=== PATIENT | male | born 1950 | race Caucasian/White ===

== ENCOUNTER 2019-09-15 13:08 | Emergency (ER) | payer MEDICARE, MEDICAID, SELFPAY ==
[2019-09-15] VITALS (12 sets, daily range): BP systolic 175–193; BP diastolic 104–109; PULSE 75–90; RESP 13–19; TEMP 36.5; O2SAT 95–100
--- NOTE | 2019-09-15 13:15 | DI.RAD_ITS ---
EXAM: XR PORTABLE CHEST AP CLINICAL HISTORY: Weakness. TECHNIQUE: 2D digital imaging was performed. COMPARISON: ABD FLAT UPRIGHT PA CHEST from 09/07/2015 FINDINGS: LUNGS: Clear. No pleural abnormality seen. HEART: Normal. MEDIASTINUM: Normal. OTHER FINDINGS: There is chronic deformity of the distal right clavicle. LUNGS: Clear. No pleural abnormality seen. Leads overlie the chest. HEART: Normal size. Pacemaker. IMPRESSION: No acute pulmonary findings. DATA REPOSITORY: RADIATION DOSE DELIVERED:
--- NOTE | 2019-09-15 13:26 | W.ED.GENAD ---
Discharge Plan Disposition Patient Disposition: HOME Condition: Stable Discharge Details Chief Complaint: GenMedical Clinical Impression: Weakness generalized Primary Care Provider: Santos Alexis ED Provider: Nereyda Byrne Home Meds and New Rx's Prescriptions: Continued atorvastatin [Lipitor] 40 MG tablet 40 mg PO DAILY RF: 0 aspirin 325 MG tablet 325 mg PO DAILY RF: 0 metoprolol succinate 100 MG tablet extended release 24 hr 200 mg PO DAILY RF: 0 chlordiazepoxide HCl 25 MG capsule 25 mg PO Q6H PRN PRNQty: 15 RF: 0 lisinopril 40 MG tablet 20 mg PO DAILY RF: 0 levetiracetam 750 mg Tablet 750 mg PO BID RF: 0 multivitamin Tablet 1 tab PO DAILY RF: 0 Discharge Instructions Instructions: Weakness (ED) Additional Instructions: Follow up with primary care provider in 3-5 days. Return to ED sooner if any worsening or concerns. Increase oral fluids. Return for any worsening or any concerns. Referrals: Santos Alexis [Primary Care Provider] - Discharge Data Discharge Date/Time-TO BE ENTERED AT DEPARTURE: 09/15/19 16:24 Medical Decision Making 69-year-old male presents with generalized weakness which has gotten worse over the last 3 days. No focal deficits. Patient has a history of A. fib, hypertension, and internal defibrillator, high cholesterol and seizure disorder and a splenectomy which he takes medications for. He denies shortness of breath, fever chills, or pain anywhere. His only complaint is progressive weakness. He lives out in the [facility] by himself and he states that yesterday he was unable to chop wood and that was concerning for him. Initial work-up ordered including CBC, CMP EKG, chest x-ray and some fluids. Initial EKG shows atrial fib at a rate of 86, no ST elevation or depression, no ectopy old EKG is available for review and shows a paced rhythm. 1422: Patient reevaluation he has no complaints at this time, vital signs are stable his blood pressure is a little bit elevated at 175 /109 he reports that he did take his blood pressure medication as directed today. At this time second troponin was canceled due to initial troponin being negative and no complaints of chest pain. EXAM: XR PORTABLE CHEST AP CLINICAL HISTORY: Weakness. TECHNIQUE: 2D digital imaging was performed. COMPARISON: ABD FLAT UPRIGHT PA CHEST from 09/07/2015 FINDINGS: LUNGS: Clear. No pleural abnormality seen. HEART: Normal. MEDIASTINUM: Normal. OTHER FINDINGS: There is chronic deformity of the distal right clavicle. LUNGS: Clear. No pleural abnormality seen. Leads overlie the chest. HEART: Normal size. Pacemaker. IMPRESSION: No acute pulmonary findings. Chest x-ray results are noted as above no acute pulmonary findings. Plan is to have patient follow-up with PCP as an outpatient at this time I feel it is safe for him to be discharged home. Discussed strict return precautions, verbalized understanding. 1448: Spoke with patient's son regarding patient and plan to DC home, they verbalized understanding. However the y did report he was complaining of SOB earlier today. He has denied SOB here, and has kept O2 sat in 98% on RA, no clear reason for patient's symptoms at this time. Lab Data Lab results reviewed: Yes I reviewed the patient's lab results. HPI General Mode of arrival: EMS. Date/Time Provider Initiated Documentation: 09/15/19 13:15. Limitations to Documentation: no limitations. Information obtained by: patient. HPI Narrative: 69-year-old male presents with generalized weakness which has gotten worse over the last 3 days. Patient has a history of A. fib, hypertension, and internal defibrillator, high cholesterol and seizure disorder and a splenectomy which he takes medications for. He denies shortness of breath, fever chills, or pain anywhere. His only complaint is progressive weakness. He lives out in the [facility] by himself and he states that yesterday he was unable to chop wood and that was concerning for him. Related Data Home Medications Medication Instructions Recorded Confirmed aspirin 325 mg PO DAILY 05/23/15 09/15/19 atorvastatin [Lipitor] 40 mg PO DAILY 05/23/15 09/15/19 metoprolol succinate 200 mg PO DAILY 05/23/15 09/15/19 chlordiazepoxide HCl 25 mg PO Q6H PRN PRN #15 cap 05/25/15 09/15/19 lisinopril 20 mg PO DAILY 06/19/15 09/15/19 levetiracetam 750 mg PO BID 09/15/19 09/15/19 multivitamin 1 tab PO DAILY 09/15/19 09/15/19 Previous Rx's Medication Instructions Recorded chlordiazepoxide HCl 25 mg PO Q6H PRN PRN #15 cap 05/25/15 Allergies Allergy/AdvReac Type Severity Reaction Status Date / Time No Known Allergies Allergy Unverified 09/07/15 12:17 General Stated Complaint: GenMedical TERRENCE: 2 Review of Systems Narrative: Constitutional: Negative for weight loss, alert and oriented, well groomed, normal body habitus, appears comfortable. HEENT: Denies trauma, headaches, blurry vision, nasal discharge, sore throat, trouble swallowing. Chest: Denies chest pain, palpitations, irregular rhythm, hypertension. Respiratory: Denies Shortness of breath, cough, hemoptysis. GI: Denies abdominal pain, nausea, vomiting, diarrhea, constipation. : Denies dysuria, hematuria, flank pain, rectal bleeding. Neuro: Denies dizziness, blurry vision,syncope, headache or facial numbness. Positive generalized weakness. Hematologic: Denies easy bruising, intolerance to heat or cold, hair loss. [facility] Social History Smoking/Tobacco Use Status: Former Tobacco Use Drug use: Current Sobriety Exam Narrative Exam Narrative: Constitutional: Allert and oriented x3. Appears stated age. Normal body habitus. Head: Normocephalic, no trauma. Eyes: Pupils PERRLA, Red reflex noted, EOM's intact. Eyelids symmetrical withour lesions, discharge, or swelling. ENT: Bilateral TM's WNL, External ear normal to inspection, no mastoid TTP, swelling, or erythema, Nasal turbinates WNL, no nasal discharge. Normal dentition, Posterior pharynx WNL, no exudate. Chest: RRR, Normal S1, S2, distal pulses intact. Resp: Lungs clear to auscultation bilaterally, no wheezes, rales, or rhonchi. Musculoskeletal: Normal gait, 5/5 strength to all four extremities. Skin: No suspicious rashes or lesions. Capillary refill less than 2 sec. Neurologic: Cranial nerves II-XII intact. Alert and oriented x 3. DTR's intact. Hematologic/Lymphatic: No ecchymosis, no lymphadenopathy. Course Vital Signs Vital signs: Vital Signs Temperature 36.5 C 09/15/19 13:14 Pulse 87 09/15/19 13:14 Respiratory Rate 14 09/15/19 13:14 Blood Pressure 175/109 H 09/15/19 13:14 Pulse Oximetry 98 09/15/19 13:14 Temperature 36.5 C 09/15/19 13:14 Temperature Source Skin 09/15/19 13:14 Pulse 87 09/15/19 13:14 Respiratory Rate 14 09/15/19 13:14 Respiratory Effort Non-Labored 09/15/19 13:14 Blood Pressure 175/109 H 09/15/19 13:14 Blood Pressure Position Supine 09/15/19 13:14 Pulse Oximetry 98 09/15/19 13:14 Oxygen Delivery Method Room Air 09/15/19 13:14 Oxygen Flow Rate 0 09/15/19 13:14 Pain Level 0 09/15/19 13:14
[2019-09-15] MEDS: Normal Saline 1,000 ML 1000 ML IV (13:35)
[2019-09-15] MEDS: Normal Saline Flush 10 ML SYR IVP (13:36)
[2019-09-15 13:48] LABS: Abs Immature Grans 0.01 k/cumm (0.0-0.09); Absolute Basophil Count 0.03 k/cumm (0.0-0.2); Absolute Eosinophil Count 0.21 k/cumm (0.0-0.7); Absolute Lymphocyte Count 2.84 k/cumm (1.2-3.4); Absolute Monocyte Count 0.99 k/cumm (0.11-0.7); Absolute Neutrophil Count 5.88 k/cumm (1.2-6.7); Basophils % 0.3; Eosinophils % 2.1; HCT 43.3 % (40.0-50.0); HGB 14.9 g/dL (13.5-17.5); Immature Grans % 0.1 %; Lymphocytes % 28.5; Mean Corp. HGB Concentration 34.4 g/dL (32.0-36.0); Mean Corpuscular Hemoglobin 29.6 pg (27.0-33.0); Mean Corpuscular Volume 86.1 fL (80-95); Mean Platelet Volume 10.3 fL (8.0-11.0); Monocytes % 9.9; Neutrophils % 59.1; Platelet Count 311 x1000/uL (130-400); RBC 5.03 m/cumm (4.50-6.00); RBC Distribution Width 12.8 % (11.8-14.1); White Blood Cell Count 9.96 k/cumm (4.4-10.8)
[2019-09-15 13:49] LABS: Bilirubin Negative (Negative); Blood Moderate (Negative); Clarity Clear (Clear); Glucose Negative (Negative); Ketones Negative (Negative); Leukocyte Esterase Negative (Negative); Nitrite Negative (Negative); Specific Gravity 1.015 (1.005-1.025); Urobilinogen 0.2 EU/dL (Up TO 0.2)
[2019-09-15 14:02] LABS: Bacteria Negative HPF (Negative); Crystals Negative HPF (Negative); Epithelial Cells Rare HPF (Negative); Mucus Negative (Negative); WBC 0-2 HPF (0-5)
[2019-09-15 14:02] LABS: ALT 26 U/L (16-63); AST 24 U/L (15-37); Albumin 3.7 g/dL (3.4-5.0); Alkaline Phosphatase 42 U/L (46-116); Anion Gap 8.7 mmol/L (3-11); BUN 14 mg/dL (7-18); Bilirubin, Total 0.5 mg/dL (0.2-1.0); CO2 27.3 mmol/L (21.0-32.0); CREATININE 1.04 mg/dL (0.70-1.30); Calcium 8.9 mg/dL (8.5-10.1); Chloride 103 mmol/L (98-107); Glucose 120 mg/dL (74-106); Magnesium 1.8 mg/dL (1.8-2.4); Potassium 3.7 mmol/L (3.5-5.1); Sodium 139 mmol/L (136-145); Total Protein 7.9 g/dL (6.4-8.2); Troponin I < 0.05 ng/Ml (<0.06)
[2019-09-15 14:03] LABS: C & S Indicated? No; Casts 3-5 Coarse Granular LPF (Negative)
== END 2019-09-15 16:24 | disposition home or self-care (01) ==
PROVIDERS: Emergency Provider Registered Nurse Emergency; PCP Neuromusculoskeletal Medicine & OMM
DX: R53.1 Weakness (principal); I48.91 Unspecified atrial fibrillation; Z95.810 Presence of automatic (implantable) cardiac defibrillator; I10 Essential (primary) hypertension
CPT/HCPCS: 36415; 80053; 93005; 96360; 99284; 71045; 81003; 81015; 83735; 84484; 85025; 93010